=== PATIENT | male | born 1965 | race Caucasian/White ===

== ENCOUNTER → 2021-08-19 08:14 | Outpatient (BNVA) | payer SELFPAY | DX: Z46.89 Encounter for fitting and adjustment of other specified devices (principal) ==

== ENCOUNTER 2023-01-14 10:04 | Emergency (ER) | payer OTHER, SELFPAY ==
--- NOTE | ~2023-01-14 | CT_ITS ---
EXAMINATION: CT ABDOMEN AND PELVIS WITHOUT CONTRAST CLINICAL INFORMATION: Possible kidney stone COMPARISON: None TECHNIQUE: Multidetector volumetric imaging was performed from the superior aspect of the liver through the pubic symphysis. Sagittal and coronal reformatted images were obtained on the technologist's workstation. This CT examination was performed using dose optimization techniques as appropriate, variously including the following: *Automated exposure control *Adjustment of mA and/or kV according to patient size (this includes techniques or standardized protocols for targeted exams where dose is matched to indication/reason for exam; i.e. extremities or head) *Use of iterative reconstruction technique DLP: 670 mGy-cm FINDINGS: LUNG BASES: The visualized lung bases are unremarkable. No pleural or pericardial effusion. LIVER, GALLBLADDER, AND BILIARY TREE: There is fatty infiltration of the liver. No focal mass or intrahepatic bile duct dilatation is appreciated. The liver is prominent measuring approximately 20 cm in vertical span. Cholelithiasis is present without evidence of acute cholecystitis. PANCREAS: Unremarkable. No peripancreatic inflammatory change. SPLEEN: There is splenomegaly with vertical span of 14 cm. ADRENAL GLANDS: Unremarkable. KIDNEYS AND URETERS: Right kidney: There is a 2 mm nonobstructing calculus within the interpolar aspect of the kidney. No hydronephrosis. No focal mass lesion is appreciated. The ureter appears unremarkable. Left kidney: There are 4 nonobstructing calculi seen within the left upper collecting system largest measuring approximately 3 mm in diameter. There is mild left hydronephrosis with perinephric stranding. The ureter is dilated with columnization down to distal ureter measuring approximately 6 mm in diameter. There is periureteral fat stranding. There is a 4 cm upper pole cyst. BLADDER: Unremarkable. GASTROINTESTINAL TRACT: No dilated loops of large or small bowel are seen. No free air or free fluid is present. No pericolonic inflammatory change. The appendix appears unremarkable. ABDOMINAL WALL: No significant hernia is appreciated. LYMPH NODES: No lymphadenopathy appreciated. VASCULAR: Unremarkable. PELVIC VISCERA: Unremarkable. OSSEOUS STRUCTURES: No suspicious destructive bony lesions identified. Degenerative disc disease with facet arthropathy seen L4-S1. CT/CT abdomen pelvis wo IV con IMPRESSION: 6 mm distal left ureteral obstructing calculus with mild hydronephrosis and hydroureter. Bilateral nephrolithiasis. Fatty infiltration of the liver with mild hepatosplenomegaly. Cholelithiasis without evidence of acute cholecystitis. Fleischner guidelines were followed.
[2023-01-14 10:20] VITALS: BP 179/112; PULSE 79; RESP 20; TEMP 36.4; O2SAT 98; BMI 29.9
[2023-01-14 10:38] LABS: MANUAL DIFF FLAG NO
[2023-01-14 10:39] LABS: Basophils Percent Auto 0.6 % (0-2); Eosinophils Absolute Auto 0.2 X10*3/uL (0.0-0.4); Eosinophils Percent Auto 3.5 % (0-4); Hematocrit 48.4 % (42.0-52.0); Hemoglobin 16.7 g/dl (14.0-18.0); Imm Gran Abs Auto 0.01 X10*3/uL (0.00-0.03); Imm Gran Pct Auto 0.2 % (0.0-0.4); Lymphocytes Absolute Auto 1.2 X10*3/uL (1.2-4.9); Lymphocytes Percent Auto 25.8 % (20-40); Mean Corpuscular HGB Conc 34.5 g/dl (31.0-36.0); Mean Corpuscular Hemoglobin 30.9 pg (27.0-33.0); Mean Corpuscular Volume 89.5 fL (80.0-98.0); Mean Platelet Volume 8.5 fL (9.4-12.4); Monocytes Absolute Auto 0.4 X10*3/uL (0.1-1.2); Monocytes Percent Auto 9.3 % (2-11); Neutrophils Absolute Auto 2.8 x10*3/uL (2.0-8.3); Neutrophils Percent Auto 60.6 % (45-73); Platelet Count 205 X10*3/uL (160-400); Red Blood Count 5.41 X10*6/uL (4.60-5.80); Red Cell Distribution Width 12.7 % (11.0-16.0); White Blood Count 4.6 X10*3/uL (4.8-10.8)
[2023-01-14 10:54] LABS: COVID-19 Test Negative (Negative); IDNOW Serial# 16C4AD1C
[2023-01-14 10:57] LABS: Anion Gap 14 (12-20); Blood Urea Nitrogen 16 mg/dL (9-16); Calcium 9.7 mg/dL (8.4-10.2); Carbon Dioxide 23 mmol/L (22-29); Chloride 108 mmol/L (96-108); Creatinine Clr Calc Pharmacy 103.7; Estimated Glomerular Filt Rate > 60; Glucose Random 104 mg/dL (60-115); Potassium 4.2 mmol/L (3.3-5.1); Sodium 141 mmol/L (135-145)
--- NOTE | 2023-01-14 11:02 | ED_ITS ---
HPI - General Adult General Chief complaint: Abdominal Pain Stated complaint: severe abd pain Time Seen by Provider: 01/14/23 11:02 Source: patient Mode of arrival: ambulatory Limitations: no limitations History of Present Illness HPI narrative: 57 [id number] with pmHx of kidney stones, HTN c/o LLQ pain with radiation to Left groin starting yesterday afternoon. He reports he was in the middle of work when it started, was initially a mild pain and he went home to rest. Today awoke with severe pain and difficulty with urination. He reports pain as sharp in nature that is intermittent with a constant aching pain. He reports a prior history of kidney stones 20 years ago that feels similar to this episode. He currently denies nausea/vomiting. He denies heavy lifting or maneuvers that may have provoked the onset of pain, fever, chills, weight loss, Onset (ago): day(s) (1) Location: abdomen Radiation: other (groin) Severity: moderate Quality: stabbing Pain Consistency: constant and intermittent Relieving factors: none Exacerbating factors: none Treatments prior to arrival: none Related Data Previous Rx's Medication Instructions Recorded prednisone 20 mg tablet 20 mg PO DAILY 7 days #7 tabs 01/14/23 tamsulosin 0.4 mg capsule (Flomax) 0.4 mg PO DAILY #7 caps 01/14/23 Allergies Allergy/AdvReac Type Severity Reaction Status Date / Time No Known Allergies Allergy Verified 01/14/23 10:20 Review of Systems Constitutional: Constitutional: Reports no additional constitutional complai nts, Denies chills, Denies fever(s) and Denies night sweats Eyes: Eyes: Reports no additional eye complaints, Denies blurry vision, Denies change in vision, Denies diplopia, Denies eye discharge, Denies loss of vision and Denies eye pain ENT: Denies dizziness Cardiovascular: Cardiovascular: Reports no additional cardiovascular complaints, Denies chest pain, Denies lightheadedness, Denies Loss of Consciousness and Denies dyspnea Respiratory: Respiratory: Reports no additional respiratory complaints and D enies dyspnea Gastrointestinal: Gastrointestinal: Reports no additional gastrointestinal complaints, Reports abdominal pain (LLQ), Denies melena, Denies hematochezia, Denies change in bowel habits and Denies change in stool character Genitourinary: Genitourinary: Reports no additional male genitourinary complaints, Denies hematuria, Denies oliguria, Denies difficulty urinating, Denies dysuria, Denies urinary frequency, Denies urinary hesitancy, Denies urinary incontinence and Denies urinary urgency Musculoskeletal: Musculoskeletal: Reports no additional musculoskeletal complaints, Denies numbness and Denies tingling Neurologic: Denies dizziness, Denies loss of vision, Denies numbness and Denies tingling Psychiatric: Psychiatric: Reports no additional psychiatric complaints Endocrine: Endocrine: Reports no additional endocrine complaints Hematologic/Lymphatic: Hematologic/Lymphatic: Reports no additional hematologic/lymphatic complaints Allergic/Immunologic: Allergic/Immunologic: Reports no additional allergic/immunologic complaints [facility] Past Medical History Attestation statement: The following information was validated with the patient. Source: old records reviewed and nursing notes reviewed Social History Social History Advance Directives: No Physical Exam ED Vital Signs: Vital Signs - 24 hr 01/14/23 15:08 Pulse Rate 89 Respiratory Rate 20 Blood Pressure 151/101 H Pulse Oximetry 97 Oxygen Delivery Method Room Air BMI result Body Mass Index 29.9 Const General: cooperative, no acute distress, alert and awake Nutritional Appearance: well nourished Orientation/consciousness: patient oriented x3 Limitations: no limitations HENMT Head: Yes normal to inspection and Yes atraumatic Ears: hearing grossly normal bilaterally and external ears normal General nose exam: Normal external nose present, no nasal discharge noted and no epistaxis Face and sinus: Yes normal facial exam, No abrasion and No laceration Mouth: Normal oral and palatal mucosa present, no drooling and no muffled voice Eyes General: appearance normal, both eyes and all related structures Periorbital: periorbital findings normal Eyelids: Yes eyelids normal Conjunctivae: conjunctivae normal Pupils: Equal, round and reactive pupils present EOM: EOMs intact bilaterally Neck Neck: Yes normal visual inspection, Yes full ROM and Yes no lymphadenopathy Chest Chest palpation & inspection: normal inspection of the chest Resp Effort & Inspection: normal respiratory effort and able to speak in complete sentences Auscultation: clear to auscultation bilaterally Cardio Palpation: normal PMI Rate: regular rate Rhythm: regular rhythm Heart sounds: S1 normal heart sound present and S2 normal heart sound present GI Inspection: Yes normal to inspection and Yes other (birthmark LLQ) Palpation (GI): Soft to palpation, nontender, no guarding and not rigid Auscultation: normal bowel sounds General: No CVA tenderness and Yes no CVA tenderness Back/Spine/Pelvis Back: no CVA tenderness and No CVA tenderness Skin General skin exam: no rashes or lesions noted Neuro General: patient oriented x3 and moves all extremities Cranial nerves: Yes Equal, round and reactive pupils present Cognition (Neuro): normal cognition Motor exam (neuro): 5/5 motor strength present throughout Sensory Exam: Normal double simultaneous stimulation for sensation Coordination: jsacer-lm-nult test normal Extrem General: Yes normal to inspection, Yes full ROM and Yes capillary refill normal Psych Appearance: grossly normal Mental Status: mental status grossly normal Affect: normal affect Attitude: cooperative Thought process: Normal thought process present Thought content: Normal thought content present Insight: Good insight present (Psych) Medications Administered Discontinued Medications Generic Name Dose Route Start Last Admin Trade Name Freq PRN Reason Stop Dose Admin Hydromorphone HCl 1 mg 01/14/23 14:58 01/14/23 15:09 Hydromorphone Hcl 1 Mg/Ml Syringe IVPUSH 01/14/23 14:59 1 mg ONCE ONE Administration Protocol Sodium Chloride 1,000 mls @ 999 mls/hr 01/14/23 11:30 01/14/23 13:46 Ns IV 01/14/23 12:30 Infused .Q1H1M JANY Infusion Lactated Ringer's 1,000 mls @ 999 mls/hr 01/14/23 15:00 01/14/23 15:10 Lr IV 01/14/23 16:00 999 mls/hr .Q1H1M JANY Administration Ketorolac Tromethamine 15 mg 01/14/23 11:16 01/14/23 11:21 Ketorolac Tromethamine 15 Mg/Ml Vial IVPUSH 01/14/23 11:17 15 mg ONCE ONE Administration Ondansetron HCl 4 mg 01/14/23 11:16 01/14/23 11:21 Ondansetron Hcl 4 Mg/2 Ml Vial IVPUSH 01/14/23 11:17 4 mg ONCE ONE Administration Tamsulosin HCl 0.8 mg 01/14/23 15:00 01/14/23 15:09 Tamsulosin Hcl 0.4 Mg Capsule PO 01/14/23 15:01 0.8 mg ONCE ONE Administration Medical Decision Making Medical Decision Making [facility] Narrative: Patient is a 57 year old assigned male at with a history of kidney stones presenting to the emergency department today with left lower quadrant abdominal pain. Patient's physical exam showed an uncomfortable individual but was otherwise unremarkable. Patient's blood work was unremarkable. Patient's urine showed blood but no signs of acute infection. Patient's abdomen/pelvis CT showed a 6mm distal left ureteral obstructing calculus with mild hydronephrosis and hydroureter. I spoke to the urologist lion trainer who recommended giving the patient a liter of LR, 1mg of dilaudid, and 0.8 of tamsulosin with a strainer and discharge with outpatient follow up. I explained my physical exam findings as well as all test results to the patient and the patient's . I answered all questions asked by the patient and the patient's . I stressed the importance of the patient taking his medication as prescribed. I stressed the importance of the patient following up with his primary care provider and a urologist. I stressed the importance of the patient returning to the emergency department immediately if his symptoms were to worsen or if he were to develop any dizziness, shortness of breath, difficulty breathing, chest pain, blurry vision, loss of vision, nausea, vomiting, abdominal pain, fever, chills, back pain, or any other complaints. Patient and the patient's verbalized agreement and understanding with this treatment plan and discharge. Differential Diagnosis Differential Diagnoses: The differential diagnosis associated with the pre sentation includes kidney stones Consult Healthcare Provider Management of the patient was discussed with: Rn Neonatal (spoke to the urologist lion trainer as noted in the MDM section of this chart) Lab Data [facility] Lab Attestation statement: I reviewed the patient's lab results. 01/14/23 10:29 01/14/23 10:29 Labs: Lab Results 01/14/23 01/14/23 01/14/23 Range/Units 10:29 10:29 10:29 WBC 4.6 L (4.8-10.8) X10*3/uL RBC 5.41 (4.60-5.80) X10*6/uL Hgb 16.7 (14.0-18.0) g/dl Hct 48.4 (42.0-52.0) % MCV 89.5 (80.0-98.0) fL MCH 30.9 (27.0-33.0) pg MCHC 34.5 (31.0-36.0) g/dl RDW 12.7 (11.0-16.0) % Plt Count 205 (160-400) X10*3/uL MPV 8.5 L (9.4-12.4) fL Immature Gran % (Auto) 0.2 (0.0-0.4) % Neut % (Auto) 60.6 (45-73) % Lymph % (Auto) 25.8 (20-40) % Weld % (Auto) 9.3 (2-11) % Eos % (Auto) 3.5 (0-4) % Baso % (Auto) 0.6 (0-2) % Lymph # (Auto) 1.2 (1.2-4.9) X10*3/uL Weld # (Auto) 0.4 (0.1-1.2) X10*3/uL Eos # (Auto) 0.2 (0.0-0.4) X10*3/uL Baso # (Auto) 0.0 (0.0-0.2) X10*3/uL Abs Immat Gran (auto) 0.01 (0.00-0.03) X10*3/uL Absolute Neuts (auto) 2.8 (2.0-8.3) x10*3/uL Absolute Nucleated RBC 0.000 (0.0-0.012) X10*3/uL Nucleated RBC % (auto) 0.0 (0.0-0.2) /100WBC Sodium 141 (135-145) mmol/L Potassium 4.2 (3.3-5.1) mmol/L Chloride 108 (96-108) mmol/L Carbon Dioxide 23 (22-29) mmol/L Anion Gap 14 (12-20) BUN 16 (9-16) mg/dL Creatinine 1.06 (0.5-1.4) mg/dL Estim Creat Clear Calc 103.7 Estimated GFR > 60 Random Glucose 104 (60-115) mg/dL Calcium 9.7 (8.4-10.2) mg/dL Urine Color Urine Appearance Urine pH (5.0-9.0) Ur Specific [place] (1.005-1.025) Urine Protein (Neg-Trace) mg/dL Urine Glucose (UA) (Negative) mg/dL Urine Ketones (Negative) mg/dL Urine Blood (Negative) Urine Nitrite (Negative) Ur Leukocyte Esterase (Negative) Urine RBC (0-2) /HPF Urine WBC (0-5) /HPF Ur Squamous Epith Cells (0-2) /HPF Urine Bacteria (None Seen) Hyaline Casts (0-2) /LPF COVID-19 (ROBERT) Negative (Negative) COVID-19 Clin Com See Note 01/14/23 Range/Units 13:19 WBC (4.8-10.8) X10*3/uL RBC (4.60-5.80) X10*6/uL Hgb (14.0-18.0) g/dl Hct (42.0-52.0) % MCV (80.0-98.0) fL MCH (27.0-33.0) pg MCHC (31.0-36.0) g/dl RDW (11.0-16.0) % Plt Count (160-400) X10*3/uL MPV (9.4-12.4) fL Immature Gran % (Auto) (0.0-0.4) % Neut % (Auto) (45-73) % Lymph % (Auto) (20-40) % Weld % (Auto) (2-11) % Eos % (Auto) (0-4) % Baso % (Auto) (0-2) % Lymph # (Auto) (1.2-4.9) X10*3/uL Weld # (Auto) (0.1-1.2) X10*3/uL Eos # (Auto) (0.0-0.4) X10*3/uL Baso # (Auto) (0.0-0.2) X10*3/uL Abs Immat Gran (auto) (0.00-0.03) X10*3/uL Absolute Neuts (auto) (2.0-8.3) x10*3/uL Absolute Nucleated RBC (0.0-0.012) X10*3/uL Nucleated RBC % (auto) (0.0-0.2) /100WBC Sodium (135-145) mmol/L Potassium (3.3-5.1) mmol/L Chloride (96-108) mmol/L Carbon Dioxide (22-29) mmol/L Anion Gap (12-20) BUN (9-16) mg/dL Creatinine (0.5-1.4) mg/dL Estim Creat Clear Calc Estimated GFR Random Glucose (60-115) mg/dL Calcium (8.4-10.2) mg/dL Urine Color Yellow Urine Appearance Clear Urine pH 6.5 (5.0-9.0) Ur Specific [place] 1.015 (1.005-1.025) Urine Protein Negative (Neg-Trace) mg/dL Urine Glucose (UA) Negative (Negative) mg/dL Urine Ketones Trace (Negative) mg/dL Urine Blood Small (1+) H (Negative) Urine Nitrite Negative (Negative) Ur Leukocyte Esterase Negative (Negative) Urine RBC 11-20 H (0-2) /HPF Urine WBC 0-5 (0-5) /HPF Ur Squamous Epith Cells 0-2 (0-2) /HPF Urine Bacteria None Seen (None Seen) Hyaline Casts 0-2 (0-2) /LPF COVID-19 (ROBERT) (Negative) COVID-19 Clin Com Radiology Impression Radiologist Impression: My interpretation is in agreement with the radiologist's impression of this imaging study. EXAMINATION: CT ABDOMEN AND PELVIS WITHOUT CONTRAST? CLINICAL INFORMATION: Possible kidney stone? COMPARISON: None? TECHNIQUE: Multidetector volumetric imaging was performed from the superior aspect of the liver through the pubic symphysis. Sagittal and coronal reformatted images were obtained on the technologist's workstation.? This CT examination was performed using dose optimization techniques as appropriate, variously including the following: *Automated exposure control *Adjustment of mA and/or kV according to patient size (this includes techniques or standardized protocols for targeted exams where dose is matched to indication/reason for exam; i.e. extremities or head) *Use of iterative reconstruction technique DLP: 670 mGy-cm FINDINGS: LUNG BASES: The visualized lung bases are unremarkable. No pleural or pericardial effusion. LIVER, GALLBLADDER, AND BILIARY TREE: There is fatty infiltration of the liver. No focal mass or intrahepatic bile duct dilatation is appreciated. The liver is prominent measuring approximately 20 cm in vertical span. Cholelithiasis is present without evidence of acute cholecystitis.? PANCREAS: Unremarkable. No peripancreatic inflammatory change. SPLEEN: There is splenomegaly with vertical span of 14 cm. ADRENAL GLANDS: Unremarkable.? KIDNEYS AND URETERS: Right kidney: There is a 2 mm nonobstructing calculus within the interpolar aspect of the kidney. No hydronephrosis. No focal mass lesion is appreciated. The ureter appears unremarkable. Left kidney: There are 4 nonobstructing calculi seen within the left upper collecting system largest measuring approximately 3 mm in diameter. There is mild left hydronephrosis with perinephric stranding. The ureter is dilated with columnization down to distal ureter measuring approximately 6 mm in diameter. There is periureteral fat stranding. There is a 4 cm upper pole cyst. BLADDER: Unremarkable.? GASTROINTESTINAL TRACT: No dilated loops of large or small bowel are seen. No free air or free fluid is present. No pericolonic inflammatory change. The appendix appears unremarkable.? ABDOMINAL WALL: No significant hernia is appreciated.? LYMPH NODES: No lymphadenopathy appreciated. VASCULAR: Unremarkable. PELVIC VISCERA: Unremarkable.? OSSEOUS STRUCTURES: No suspicious destructive bony lesions identified. Degenerative disc disease with facet arthropathy seen L4-S1.? CT/CT abdomen pelvis wo IV con IMPRESSION: 6 mm distal left ureteral obstructing calculus with mild hydronephrosis and hydroureter. ? Bilateral nephrolithiasis. ? Fatty infiltration of the liver with mild hepatosplenomegaly. ? Cholelithiasis without evidence of acute cholecystitis.? ? Fleischner guidelines were followed. Dictated By: Jay Bautista MD Signed By: Electronically signed by Jay Bautista MD 01/14/23 5644 Critical Care Time Critical Care Time Critical Care Time: Yes Total Critical Care Time: 30 Attestation: I spent 30 minutes of Critical Care Time with this patient. This does not include time spent on separately reported billable procedures. Discharge Plan Discharge Clinical Impression: Calculus of kidney Patient Disposition: Home, Self-Care Instructions: Kidney Stones (ED) Additional Instructions: Follow up with your primary care provider and a urologist. Return to the emergency department immediately if your symptoms worsen or if you develop any dizziness, shortness of breath, difficulty breathing, chest pain, blurry vision, loss of vision, nausea, vomiting, abdominal pain, fever, chills, back pain, or any other complaints. Prescriptions: New tamsulosin [Flomax] 0.4 mg capsule 0.4 mg PO DAILY Qty: 7 0RF prednisone 20 mg tablet 20 mg PO DAILY 7 Days Qty: 7 0RF Referrals: [facility] [Provider Group] (Call to establish and follow up with a new primary care provider.) [facility] [place] [facility], Dylan [Provider Group] (Call to establish and follow up with a new primary care provider.) [facility] [place] [facility],Shannan [Provider Group] (Call to establish and follow up with a new primary care provider.) [facility] [Provider Group] (Call to establish and follow up with a urologist.) Jazlyn Art NP [Primary Care Provider] - Stand Alone Forms: Work/School Release Interventions: ED Discharge Assessment Last Done: 01/14/23 16:53 Discharge Date/Time: 01/14/23 16:53 Print Language: Kyrgyz
[2023-01-14] MEDS: Ketorolac Tromethamine 15 MG/ML VIAL IVPUSH (11:21)
[2023-01-14] MEDS: 0.9 % Sodium Chloride 1,000 ML 999 ML IV (11:21)
[2023-01-14] MEDS: ondansetron HCL 4 MG/2 ML VIAL IVPUSH (11:21)
--- NOTE | 2023-01-14 11:29 | PC.NURSE ---
Pacing around room in 10/10 lower abd pain. IV established, medicated per the MAR for pain. Awaiting CT scan, at bedside.
[2023-01-14 13:39] LABS: Appearance Urine Clear; Color Urine Yellow; Glucose Urine UA Negative (Negative); Leukocyte Esterase Urine Negative (Negative); Nitrite Urine Negative (Negative); PH 6.5 (5.0-9.0); Specific Gravity - Urine 1.015 (1.005-1.025); UMIC TRIGGER UACC YES; Urine Blood Small (1+) (Negative); Urine Ketones Trace mg/dL (Negative); Urine Protein Negative (Neg-Trace)
[2023-01-14 13:44] LABS: Bacteria Urine None Seen (None Seen); Hyaline Casts Urine 0-2 /LPF (0-2); Squamous Epithelial Cell Urine 0-2 /HPF (0-2); WBC Urine 0-5 /HPF (0-5)
[2023-01-14 15:08] VITALS: BP 151/101; PULSE 89; RESP 20; O2SAT 97
[2023-01-14] MEDS: HYDROmorphone HCl 1 MG/ML SYRINGE IVPUSH (15:09)
[2023-01-14] MEDS: Tamsulosin HCL 0.4 MG CAPSULE 0.8 MG PO (15:09)
[2023-01-14] MEDS: Lactated Ringers 1,000 ML 999 ML IV (15:10)
== END 2023-01-14 16:53 | disposition home or self-care (01) ==
PROVIDERS: Emergency Provider Emergency Medicine; PCP Nurse Practitioner Family
DX: N13.2 Hydronephrosis with renal and ureteral calculous obstruction (principal); I10 Essential (primary) hypertension; Z87.442 Personal history of urinary calculi; Z20.822 Contact with and (suspected) exposure to COVID-19
CPT/HCPCS: 74176; 80048; 81001; 85025; 87635; 96361; 96374; 96375; 99285; J1170; J1885; J2405

== ENCOUNTER → 2023-01-29 14:15 | Outpatient (BNVA) | payer OTHER, SELFPAY | PROVIDERS: PCP Nurse Practitioner Family; Visit Provider Urology | DX: Z13.89 Encounter for screening for other disorder (principal) ==

== ENCOUNTER 2023-03-24 08:27 | Outpatient (REF) | payer OTHER, SELFPAY ==
[2023-03-24 10:02] LABS: Alanine Aminotransferase 20 U/L (0-40); Albumin Level 4.6 g/dL (3.5-5.0); Alkaline Phosphatase 77 U/L (39-117); Anion Gap 11 (12-20); Aspartate Amino Transferase 17 U/L (5-37); Blood Urea Nitrogen 15 mg/dL (9-16); Calcium 9.8 mg/dL (8.4-10.2); Carbon Dioxide 25 mmol/L (22-29); Chloride 106 mmol/L (96-108); Cholesterol 203 mg/dL; Estimated Glomerular Filt Rate > 60; Glucose Fasting 89 mg/dL (60-99); HDL Cholesterol 30 mg/dL; LDL Cholesterol Calculated 152 mg/dl; Potassium 4.4 mmol/L (3.3-5.1); Sodium 138 mmol/L (135-145); Total Protein 6.9 g/dL (6.5-8.0); Triglycerides 108 mg/dL
[2023-03-24 10:32] LABS: Folate 8.7 ng/mL (> or = 4.0); Prostate Specific Antigen 10.93 ng/mL (<0.05-4.0); TSH reflex Free T4 1.65 uIU/mL (0.32-4.0); Vitamin B12 517 pg/mL (200-900); Vitamin D 25-OH Total 22.8 ng/mL (>30)
== END 2023-03-24 08:28 | disposition home or self-care (01) ==
LOC: HO.LAB 08:27
PROVIDERS: PCP Nurse Practitioner Family; Visit Provider Nurse Practitioner Family
DX: I10 Essential (primary) hypertension (principal); Z13.1 Encounter for screening for diabetes mellitus; Z13.220 Encounter for screening for lipoid disorders; Z12.5 Encounter for screening for malignant neoplasm of prostate; E55.9 Vitamin D deficiency, unspecified; N40.0 Benign prostatic hyperplasia without lower urinary tract symptoms; R97.20 Elevated prostate specific antigen [PSA]
CPT/HCPCS: 36415; 80053; 80061; 82306; 82607; 82746; 84153; 84443

== ENCOUNTER → 2023-03-29 13:27 | Outpatient (BNVA) | payer OTHER, SELFPAY | PROVIDERS: PCP Nurse Practitioner Family; Visit Provider Urology ==

== ENCOUNTER → 2023-04-06 11:51 | Outpatient (BNVA) | payer OTHER, SELFPAY | PROVIDERS: PCP Nurse Practitioner Family; Visit Provider Nurse Practitioner Family ==

== ENCOUNTER 2024-01-06 06:51 | Day surgery (SDC) | payer OTHER, SELFPAY ==
[2024-01-04 10:50] VITALS: BMI 30.7
--- NOTE | 2024-01-05 11:41 | HO.ANESPROP2 ---
Documented by User: Mirna Anderson NP 01/05/24 11:42 HPI - Anesthesia Eval Consult details Narrative: 58yo M for Colonoscopy PMFSH Active Problems Active Problems: All Active Problems (Updated 01/04/24 @ 10:49 by Carmen Sharif, JONE) Low vitamin D level (Acute) BPH (benign prostatic hyperplasia) (Acute) Elevated PSA (Acute) Upper respiratory tract infection (Acute) Obesity (BMI 30.0-34.9) (Acute) Establishing care with new doctor, encounter for (Acute) Fatty infiltration of liver (Acute) Screening for colon cancer (Acute) Screening for diabetes mellitus (Acute) Screening for hyperlipidemia (Acute) Screening for prostate cancer (Acute) Hypertension (Acute) Bilateral kidney stones (Acute) Past Medical History Medical History (Updated 01/04/24 @ 10:49 by Carmen Sharif RN) Sleep apnea Fatty liver Renal calculi BPH (benign prostatic hyperplasia) HTN (hypertension) Family History Family History Father Colon cancer Surgical History Surgical History H/O umbilical hernia repair Social History Social History Housing: House Patient Tobacco Use Status: Never used Tobacco Are you DNR?: No Advance Directives: No Advance Directives Information Provided: Yes Nutrition Risks: No Nutritional Risk service: No Current occupational status: employed Cognitive needs: No Hearing needs: No Vision needs: No Meds Allergies Allergy/AdvReac Type Severity Reaction Status Date / Time No Known Allergies Allergy Verified 04/06/23 12:19 Home Medications Medication Instructions Recorded Confirmed Last Taken Type amlodipine 5 mg tablet 5 mg PO DAILY 01/29/23 01/04/24 Unknown History fluticasone propionate 50 1 spray intranasal DAILY PRN Nasal 02/11/23 01/04/24 Unknown History mcg/actuation nasal Congestion spray,suspension Exam Height,Weight and Vital Signs: Height 6 ft 3 in Weight 111.584 kg Assessment and Plan Assessment Anesthesia Assessment: Chart Reviewed Documented by User: Hiro Gutierrez MD 01/06/24 07:49 PMF Past Medical History Medical History (Updated 01/04/24 @ 10:49 by Carmen Sharif RN) Sleep apnea Fatty liver Renal calculi BPH (benign prostatic hyperplasia) HTN (hypertension) Family History Family History Father Colon cancer Family history of problems with anesthesia: No Surgical History Surgical History H/O umbilical hernia repair History of Problems with Anesthesia: No Social History Social History Housing: House Patient Tobacco Use Status: Never used Tobacco Are you DNR?: No Advance Directives: No Advance Directives Information Provided: Yes Nutrition Risks: No Nutritional Risk service: No Current occupational status: employed Cognitive needs: No Hearing needs: No Vision needs: No Meds Allergies Allergy/AdvReac Type Severity Reaction Status Date / Time No Known Allergies Allergy Verified 04/06/23 12:19 Home Medications Medication Instructions Recorded Confirmed Last Taken Type amlodipine 5 mg tablet 5 mg PO DAILY 01/29/23 01/04/24 Unknown History fluticasone propionate 50 1 spray intranasal DAILY PRN Nasal 02/11/23 01/04/24 Unknown History mcg/actuation nasal Congestion spray,suspension Exam Airway Mallampati Class: II TM Dist: >3cm Neck ROM: Full Loose/Missing/Broken Teeth: No Heart: ok Lungs: ok Assessment and Plan Assessment Anesthesia Assessment: Anesthesia Plan Discussed Final Anesthetic Review Family History of Problems with Anesthesia: No History of Problems with Anesthesia: No NPO: Yes ASA Class: III Final Preanesthetic Review: No Changes in Pt Med Stat, Meds/Allgs Chart Reviewed, Consent Obtained/Reviewed and Anes Risks/Benef Reviewed Patient Risk: Low Procedure Risk: Low Anesthetic Plan Anesthetic Plan: MAC: and Agree w/ Assess. and Plan Disposition: Standard PACU
[2024-01-06 07:03] VITALS: BMI 31.7
[2024-01-06 07:19] VITALS: BP 181/111; PULSE 70; RESP 20; TEMP 36.9; O2SAT 96
[2024-01-06] MEDS: Lactated Ringers 1,000 ML 100 ML IVCONT (07:24)
--- NOTE | 2024-01-06 07:41 | MHC.SHP ---
Pre-Procedural Eval Section A - 24 Hr Update-Section A only Date of Service: 01/06/24 Section B - Complete if H&P > 30 days Chief Complaint: screening Details of Present Illness: father had crc Relevant Family History (Specify if Yes): Yes Relevant Social History: Other (specify) (THC) Present Medications: see Short Stay Collaborative assessment Medical History: Significant History (Sleep apnea Fatty liver Renal calculi BPH (benign prostatic hyperplasia) HTN (hypertension)) History of Previous Operations: Relevant previous surgery/procedure and date(s) (H/O umbilical hernia repair) Allergies: Allergies Allergy/AdvReac Type Severity Reaction Status Date / Time No Known Allergies Allergy Verified 04/06/23 12:19 Review of Systems Sugical H&P ROS: Negative: Constitution, Cardiovascular, Respiratory, Neurological, Psychiatric, Hem-Onc, Allergic/Immunologic, Gastrointestinal, Genitourinary, Musculoskeletal, Integumentary, Endocrine and Eyes/Ears/Nose/Throat Exam Surgical H&P Exam: Normal: HEENT, Normal: Heart, Normal: Lungs, Normal: Extremities, Normal: Abdomen, Normal: Skin and Normal: Neurological Plan Diagnosis/Plan: Unchanged I have reviewed the history and physical and performed a pertinent physical examination on my patient. No changes have occurred unless specified. Time Spent With Patient Time: Total time managing care of this patient today ____ minutes.
--- NOTE | 2024-01-06 07:42 | W.PM.OPN ---
Operative Note Operative Note Date of Service: 01/06/24 Narrative: Operative Information Procedure Description: Colonoscopy Indication: screening, pos FH of CRC Anesthesia: MAC COLONOSCOPY Instrument: Olympus variable stiffness pediatric scope 190L Colonoscopy Monitoring: Vital signs and clinical assessment, continuous EKG monitoring, Pulse oximetry, Carbon Dioxide monitoring and blood pressure monitoring were done throughout the procedure. Colon withdrawal time was 15 minutes. Procedure: The patient was placed in the left lateral decubitis position and pre-procedure medications were administered. After a digital rectal examination of the ano-rectum, the video colonoscope was inserted into the rectum and advanced through the colon to the cecum/TI. The colonoscope was slowly withdrawn in a retrograde panoramic fashion and the colon mucosa was carefully examined including a retroflexed view of the rectum. Findings and interventions are described below. Procedure Difficulty: moderate, pressure applied Findings: Terminal Ileum-not intubated due to looping Cecum:normal Ascending Colon: x 3 sessile polyps 4-5 mm removed with cold forceps Transverse Colon -normal Descending Colon:normal Sigmoid Colon: moderate diverticulosis, x 2 sessile polyps 8-9 mm removed with cold snare, one area with x 2 clips applied due to oozing of blood Rectum: Retroflexion with medium to large internal hemorrhoids, grade I Anorectum - normal Colon preparation: [place] Bowel Preparation Scale Right colon; 1-2 Transverse colon: 2 Left colon; 1-2 (0 = Unprepared colon segment with mucosa not seen due to solid stool that cannot be cleared. 1 = Portion of mucosa of the colon segment seen, but other areas of the colon segment not well seen due to staining, residual stool and/or opaque liquid. 2 = Minor amount of residual staining, small fragments of stool and/or opaque liquid, but mucosa of colon segment seen well. 3 = Entire mucosa of colon segment seen well with no residual staining, small fragments of stool or opaque liquid) Impression and Post Procedure Diagnosis: polyps internal hemorrhoids diverticular disease Plan: High fiber diet leaflet Avoid straining at stool, epsom salts and sitz bath, anusol supps or cream Repeat Colonoscopy in 1 year due to fair prep or earlier if clinically indicated Above findings were reviewed with the patient and relevant handouts were provided if indicated.
[2024-01-06 08:15] VITALS: BP 149/97; PULSE 95; RESP 16; TEMP 36.3; O2SAT 97
[2024-01-06 08:30] VITALS: BP 150/111; PULSE 83; RESP 16; TEMP 36.3; O2SAT 96
== END 2024-01-06 08:54 | disposition home or self-care (01) ==
PROVIDERS: PCP Internal Medicine; Visit Provider Internal Medicine Gastroenterology
PROC: 0DJD8ZZ Inspection of Lower Intestinal Tract, Via Natural or Artificial Opening Endoscopic (ICD-10-PCS; CPT 45378; principal; 2024-01-06 08:20)
DX: Z12.11 Encounter for screening for malignant neoplasm of colon (principal); D12.2 Benign neoplasm of ascending colon; D12.5 Benign neoplasm of sigmoid colon; K57.30 Diverticulosis of large intestine without perforation or abscess without bleeding; K56.2 Volvulus; K64.0 First degree hemorrhoids; I10 Essential (primary) hypertension; Z80.0 Family history of malignant neoplasm of digestive organs
CPT/HCPCS: 45385; 45380; 88305; J2704

== ENCOUNTER → 2024-01-06 06:51 | Outpatient (BNV) | payer OTHER, SELFPAY | PROVIDERS: PCP Internal Medicine; Visit Provider Internal Medicine Gastroenterology | DX: Z12.11 Encounter for screening for malignant neoplasm of colon (principal); Z80.0 Family history of malignant neoplasm of digestive organs; D12.2 Benign neoplasm of ascending colon; D12.5 Benign neoplasm of sigmoid colon; K57.30 Diverticulosis of large intestine without perforation or abscess without bleeding; K64.0 First degree hemorrhoids | CPT/HCPCS: 45380; 45385 ==

== ENCOUNTER 2024-01-21 11:33 | Outpatient (AMB) | payer OTHER, SELFPAY ==
--- NOTE | 2024-01-21 11:38 | MHC.OFFVIS ---
Intake Vital Signs 01/21/24 11:39 Height 6 ft 3 in Weight 250 lb BMI 31.2 BP 151/88 H Blood Pressure Location Lt brachial Position Sitting Pulse 75 Intake Visit Reasons: s/p colon Intake Note: Follow up for Colonoscopy results. Patient denies any GI issues for today. 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 Denies any issues with anesthesia in the past.? Diagnosed with sleep apnea several years ago, however since he lost 60 lb he no longer uses CPAP machine.? No history infectious diseases in the past or present.? Not on any anticoagulation therapy.? Patient's father was diagnosed with colorectal cancer in 2007.? Patient denies melena, hematochezia, unintentional weight loss or ribbon like stools.? Discussed at length the pre-procedure,? prep, diet & medications as well as what to expect prior, during and after the procedure.?? Stressed the importance of good bowel prep. ?Recommended the use of Vaseline or Calmoseptine OTC & baby wipes with bowel movements to promote comfort.? ?Patient verbalizes understanding and agrees to plan of care.? He was given the opportunity to ask questions and all questions answered.? We will see him after the procedure.? COLONOSCOPY Findings: Terminal Ileum-not intubated due to looping Cecum:normal Ascending Colon: x 3 sessile polyps 4-5 mm removed with cold forceps Transverse Colon -normal Descending Colon:normal Sigmoid Colon: moderate diverticulosis, x 2 sessile polyps 8-9 mm removed with cold snare, one area with x 2 clips applied due to oozing of blood Rectum: Retroflexion with medium to large internal hemorrhoids, grade I Anorectum - normal Colon preparation: [place] Bowel Preparation Scale Right colon; 1-2 Transverse colon: 2 Left colon; 1-2 (0 = Unprepared colon segment with mucosa not seen due to solid stool that cannot be cleared. 1 = Portion of mucosa of the colon segment seen, but other areas of the colon segment not well seen due to staining, residual stool and/or opaque liquid. 2 = Minor amount of residual staining, small fragments of stool and/or opaque liquid, but mucosa of colon segment seen well. 3 = Entire mucosa of colon segment seen well with no residual staining, small fragments of stool or opaque liquid) Impression and Post Procedure Diagnosis: polyps internal hemorrhoids diverticular disease Plan: High fiber diet leaflet Avoid straining at stool, epsom salts and sitz bath, anusol supps or cream Repeat Colonoscopy in 1 year due to fair prep or earlier if clinically indicated PATHOLOGY RESULTS Diagnosis A. Colon, ascending, polyps: Tubular adenoma, 1 piece; negative for high-grade dysplasia and carcinoma, and polypoid colonic mucosa, 1 piece, with no adenomatous dysplasia. B. Colon, sigmoid, polyps: Tubular adenoma, 1 piece; negative for high-grade dysplasia and carcinoma, and polypoid colonic mucosa, 1 piece, with lymphoid aggregate and no adenomatous dysplasia TODAY'S VISIT Patient is here today for follow-up and to discuss colonoscopy results. Two tubular adenoma found without high-grade dysplasia or carcinoma. Moderate diverticulosis seen on colonoscopy in sigmoid colon. Patient denies any ill effects from the prep, anesthesia or procedure itself. Patient had suboptimal prep and will need to repeat colonoscopy in 1 year. Patient denies any melena, hematochezia, unintentional weight loss or ribbon like stools. Reports that he is feeling like he moves his bowels daily. Patient denies any GI concerning symptoms. Denies any dyspepsia, dysphagia or odynophagia. Denies any abdominal pain or discomfort. [facility] Medical History (Updated 01/21/24 @ 19:40 by DELFINO Xiong) Diverticulosis Tubular adenoma of colon Sleep apnea Fatty liver Renal calculi BPH (benign prostatic hyperplasia) HTN (hypertension) Surgical History Hx of colonoscopy H/O umbilical hernia repair Family History Father Colon cancer Social History Housing: House Patient Tobacco Use Status: Never used Tobacco service: No Current occupational status: employed Cognitive needs: No Hearing needs: No Vision needs: No Review of Systems Const Denies weight gain and Denies weight loss ENT Reports no additional complaints, Denies dysphagia and Denies odynophagia Card Reports no additional complaints Resp Reports no additional complaints GI Denies abdominal pain, Denies belching, Denies melena, Denies bloating, Denies change in bowel habits, Denies dysphagia, Denies excessive flatus, Denies dyspepsia, Denies heartburn, Denies diarrhea, Denies loose stools, Denies nausea, Denies odynophagia and Denies vomiting Reports no additional complaints Musc Reports no additional complaints Neuro Reports no additional complaints Psych Reports no additional complaints Endo Reports no additional complaints Physical Exam Vital Signs: Last Vital Signs Pulse 75 01/21/24 11:39 BP 151/88 H 01/21/24 11:39 BMI result Body Mass Index 31.2 Const General: healthy appearing, no acute distress and well developed Nutritional Appearance: well nourished Orientation/consciousness: patient oriented x3 Resp Effort & Inspection: normal respiratory effort, able to speak in complete sentences, no tracheal deviation and symmetric chest movement Auscultation: clear to auscultation bilaterally Cardio Rate: regular rate GI Inspection: Yes normal to inspection and No distended Palpation (GI): Soft to palpation, not firm, nontender and No hepatosplenomegaly present Auscultation: normal bowel sounds General: Yes no CVA tenderness Back/Spine/Pelvis Back: no CVA tenderness Skin General skin exam: elasticity normal, turgor normal and dry skin Neuro General: patient oriented x3 Psych Appearance: grossly normal Mental Status: mental status grossly normal Assessment & Plan Assessment & Plan (1) Tubular adenoma of colon: Code(s): D12.6 - Benign neoplasm of colon, unspecified (2) Diverticulosis: Code(s): K57.90 - Diverticulosis of intestine, part unspecified, without perforation or abscess without bleeding (3) Status post colonoscopy: Code(s): Z98.890 - Other specified postprocedural states Plan Patient is inquiring about getting script for amlodipine as he is out and does not have a PCP appointment for another month or so. Patient's PCP left. Will refill 1 month supply. Patient was encouraged to start taking MiraLax daily to help him empty his bowels better. As mentioned above in HPI tubular adenoma found without high-grade dysplasia or carcinoma. Suboptimal prep might have missed some polyps, patient will return in 8 months we can discuss going for colonoscopy within 1 year. Patient will call us sooner if he will have any GI concerning symptoms or if he will experience any clinical signs requiring colonoscopy sooner. Moderate diverticulosis in sigmoid colon. Patient was encouraged to increase fiber in his diet. High-fiber diet discussed with him and list of food high in fiber given to patient. Patient is agreeable to current plan and verbalizes understanding of instructions. He was given the opportunity to ask questions and all questions answered. Thank you for allowing me to participate in his care Medications: New amlodipine 5 mg PO DAILY 30 tabs 0RF polyethylene glycol 3350 (Miralax) 17 grams PO DAILY 510 grams 2RF Coding Level of Care Code Est Pt Level 3 (23617) Diagnoses Tubular adenoma of colon D12.6 Diverticulosis K57.90 Status post colonoscopy Z98.890 Time Spent (min) 25 Comment 15 minutes spent with patient and additional 10 minutes spent reviewing his records
[2024-01-21 11:39] VITALS: BP 151/88; PULSE 75; BMI 31.2
== END 2024-01-21 12:06 | disposition home or self-care (01) ==
PROVIDERS: PCP Internal Medicine; Visit Provider Nurse Practitioner Family
DX: D12.6 Benign neoplasm of colon, unspecified (principal); K57.90 Diverticulosis of intestine, part unspecified, without perforation or abscess without bleeding; Z98.890 Other specified postprocedural states
CPT/HCPCS: 99213

== ENCOUNTER → 2024-01-21 11:33 | Outpatient (BNVA) | payer OTHER, SELFPAY | PROVIDERS: PCP Internal Medicine; Visit Provider Nurse Practitioner Family ==

== ENCOUNTER 2024-04-20 14:11 | Outpatient (AMB) | payer OTHER, SELFPAY ==
--- NOTE | 2024-04-20 14:18 | A.OFFPC_ITS ---
Vital Signs 04/20/24 14:21 Height 6 ft 3 in Weight 249 lb 4 oz BMI 31.2 BP 132/70 Blood Pressure Location Lt brachial Position Sitting Pulse 80 Pulse Source Pulse Oximeter Pulse Oximetry (%) 99 Oxygen Delivery Method Room Air Intake Visit Reasons: was sebastian pt, tennis elbow Intake Note: Patient is here to follow up on tennis elbow and RUBI from 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 Patient reports that the tendinitis in the right elbow is improving. He did physical therapy and symptoms are resolving. Compliant with medications and reporting no side effects. Able to function and do all activities of daily living. Previous blood work was reviewed with patient. He is PSA was elevated at 10.93. Patient reports that he was notified of the same but did not follow-up. He has no urinary symptoms. [facility] Medical History (Updated 01/21/24 @ 19:40 by Anastasiia Matson, [facility]) Diverticulosis Tubular adenoma of colon Sleep apnea Fatty liver Renal calculi BPH (benign prostatic hyperplasia) HTN (hypertension) Surgical History (Updated 04/20/24 @ 14:27 by KIARA Jules) Hx of colonoscopy H/O umbilical hernia repair Family History Father Colon cancer Social History (Updated 04/20/24 @ 14:27 by KIARA Jules) Housing: House Alcohol intake: current Alcohol intake frequency: a few times a month Patient Tobacco Use Status: Current someday Tobacco user Tobacco use type: Cigar e-Cigarette/Vaping Use: Never Used Second Hand Smoke Exposure: No service: No Current occupational status: employed Cognitive needs: No Hearing needs: No Vision needs: No Questionnaire PHQ-9 Over the last 2 weeks, how often have you been bothered by any of the following problems? 1. Little interest or pleasure in doing things: not at all 2. Feeling down, depressed, or hopeless: not at all 3. Trouble falling or staying asleep, or sleeping too much: not at all 4. Feeling tired or having little energy: not at all 5. Poor appetite or overeating: not at all 6. Feeling bad about yourself - or that you are a failure or have let yourself or your family down: not at all 7. Trouble concentrating on things, such as reading the newspaper or watching television: not at all 8. Moving or speaking so slowly that other people could have noticed. Or the opposite - being so fidgety or restless that you have been moving around a lot more than usual: not at all 9. Thoughts that you would be better off or of hurting yourself in some way: not at all Total score: 0 Depression Screening Interpretation: Negative Depression Screening Done: Yes Source: Developed by Drs. Wally Jo, Amy Marrero, Juan Jose Pond and colleagues, with an educational ce from [employer]. Thrive Questionnaire Date Thrive assessed: 04/20/24 I am a: Patient What is your living situation today?: I have a steady place to live Within the past 12 months, did the food you bought not last and you didn't have the money to get more?: Never true Within the past 12 months, did you worry whether your food would run out before you got money to buy more?: Never true Do you have trouble paying for medicines?: No Do you have trouble getting transportation to medical appointments?: No Do you have trouble paying your heating and electricity bill?: No Do you have trouble taking care of your child, family member or friend?: No Do you have trouble with day-to-day activities such as bathing, preparing meals, shopping, managing finances, etc.?: No Are you currently unemployed and looking for a job?: No Are you interested in more education?: No Currently or been in a relationship where the following occur: no concerns reported THRIVE Score: 0 AUDIT C Alcohol Use Questionnaire (AUDIT-C) 1. How often do you have a drink containing alcohol?: 2-4 times a month 2. How many drinks containing alcohol do you have on a typical day when you are drinking?: 1 or 2 Total Score: 2 MELL-7 AMB Questionnaire MELL-7 Date MELL - 7 assessed: 04/20/24 Feeling nervous, anxious, or on edge: 0 = Not at all Not being able to stop or control worryin = Not at all Worrying too much about different things: 0 = Not at all Trouble relaxin = Not at all Being so restless that it is hard to sit still: 0 = Not at all Becoming easily annoyed or irritable: 0 = Not at all Feeling afraid as if something awful might happen: 0 = Not at all Total MELL-7 score (0-4 normal; 5-9 mild; 10-14 moderate; 15-21 severe): 0 Source: Developed by Drs. Wally Jo, Amy Marrero, Juan Jose Pond and colleagues, with an educational ce from [employer]. Physical exam (Primary Care) Vital Signs: Last Vital Signs Pulse 80 04/20/24 14:21 BP 132/70 04/20/24 14:21 Pulse Ox 99 04/20/24 14:21 Oxygen Delivery Method Room Air 04/20/24 14:21 BMI result Body Mass Index 31.2 Tobacco/Smoking Status: Tobacco use Status Tobacco use date assessed 04/20/24 04/20/24 14:28 Patient Tobacco Use Status Current someday Tobacco 04/20/24 14:28 Tobacco use type Cigar 04/20/24 14:28 e-Cigarette/Vaping Use Never Used 04/20/24 14:28 PHQ-9: PHQ-9 Score PHQ-9: Total score 0 04/20/24 14:28 Depression Screening Interpretation: Negative Thrive Assessment: Date of Thrive Assessment Date Thrive assessed 04/20/24 04/20/24 14:28 Currently or been in a relationship where the following occur: no concerns reported Const General: cooperative and healthy appearing Nutritional Appearance: well nourished Orientation/consciousness: patient oriented x3 Limitations: no limitations HENMT Head: Yes normal to inspection Eyes General: appearance normal, both eyes and all related structures Neck Neck: Yes normal visual inspection Chest Chest palpation & inspection: normal palpation of entire chest wall Resp Effort & Inspection: normal respiratory effort Neuro General: patient oriented x3 Assessment and Plan Assessment & Plan (1) Obesity (BMI 30.0-34.9): Code(s): E66.9 - Obesity, unspecified Plan: Counseling on the importance of diet and exercise done. (2) Hypertension: Code(s): I10 - Essential (primary) hypertension Plan: Blood pressure is in range. Amlodipine has been refilled. (3) Prostate hypertrophy: Code(s): N40.0 - Benign prostatic hyperplasia without lower urinary tract symptoms Plan: PSA has been repeated. I encouraged the patient not to ignore the elevated PSA. Currently he has no urinary symptoms. Orders: Orders Basic Metabolic Panel Today E66.9 - Obesity, unspecified, I10 - Essential (primary) hypertension Thyroid Stimulating Hormone Today E66.9 - Obesity, unspecified, I10 - Essential (primary) hypertension Complete Blood Count no Diff Today E66.9 - Obesity, unspecified, I10 - Essential (primary) hypertension Liver Panel Today E66.9 - Obesity, unspecified, I10 - Essential (primary) hypertension Lipid Panel Today E66.9 - Obesity, unspecified, I10 - Essential (primary) hypertension Prostate Specific Antigen Scr Today E66.9 - Obesity, unspecified, I10 - Essential (primary) hypertension Medications: Refilled cholecalciferol (vitamin D3) 25 mcg PO DAILY 90 tabs 0RF R79.89 - Other specified abnormal findings of blood chemistry amlodipine 5 mg PO DAILY 90 tabs 1RF Coding Level of Care Code Est Pt Level 4 (41221) Complex EM visit Add On G2211 Diagnoses Obesity (BMI 30.0-34.9) E66.9 Hypertension I10 Prostate hypertrophy N40.0
[2024-04-20 14:21] VITALS: BP 132/70; PULSE 80; O2SAT 99; BMI 31.2
== END 2024-04-20 15:09 | disposition home or self-care (01) ==
PROVIDERS: PCP Internal Medicine; Visit Provider Internal Medicine
DX: I10 Essential (primary) hypertension (principal); N40.0 Benign prostatic hyperplasia without lower urinary tract symptoms; E66.9 Obesity, unspecified; Z68.31 Body mass index [BMI] 31.0-31.9, adult
CPT/HCPCS: 99214; G2211

== ENCOUNTER 2024-07-10 10:11 | Outpatient (AMB) | payer OTHER, SELFPAY ==
[2024-07-10 11:19] VITALS: BP 138/94; PULSE 76; TEMP 36.9; O2SAT 98; BMI 30.1
--- NOTE | 2024-07-10 11:19 | MHC.OFFWIV ---
Intake Vital Signs 07/10/24 11:19 Height 6 ft 3 in Weight 241 lb BMI 30.1 BP 138/94 H Blood Pressure Location Rt brachial Position Sitting Pulse 76 Pulse Source Pulse Oximeter Temp 98.4 F Temp Source Oral Pulse Oximetry (%) 98 Oxygen Delivery Method Room Air Intake Visit Reasons: EP- sinus congestion, headaches Intake Note: pt c/o Sinus congestion and headache x 3 weeks. Patient Tobacco Use Status: Current someday Tobacco user Allergies No Known Allergies Allergy (Verified 07/10/24 11:23) Do you need a note to return to daycare/school/sports/work: No HPI HPI Comments History of Present Illness Details Patient is a 58-year-old male complaining of what he thinks is a sinus infection for over 2 weeks. He states he has sinus pain and pressure had a headache but that seems a little bit better now. He also admits to head congestion. He states he has been using Flonase and a Neti pot with distilled water regularly but it does not seem to be getting much better. He said usually by now, it clears up. He states he also has fatigue. He denies any body aches or fevers or ear pain [facility] Medical History (Updated 07/10/24 @ 11:50 by Kaity Hurst PA-C) Diverticulosis Tubular adenoma of colon Sleep apnea Fatty liver Renal calculi BPH (benign prostatic hyperplasia) HTN (hypertension) Surgical History (Updated 04/20/24 @ 14:27 by KIARA Jules) Hx of colonoscopy H/O umbilical hernia repair Family History Father Colon cancer Social History (Updated 04/20/24 @ 14:27 by KIARA Jules) Housing: House Alcohol intake: current Alcohol intake frequency: a few times a month Patient Tobacco Use Status: Current someday Tobacco user Tobacco use type: Cigar e-Cigarette/Vaping Use: Never Used Second Hand Smoke Exposure: No service: No Current occupational status: employed Cognitive needs: No Hearing needs: No Vision needs: No Review of Systems Const All systems reviewed & are unremarkable except as noted in HPI and below Physical Exam Vital Signs: Last Vital Signs Temp 98.4 F 07/10/24 11:19 Pulse 76 07/10/24 11:19 BP 138/94 H 07/10/24 11:19 Pulse Ox 98 07/10/24 11:19 Oxygen Delivery Method Room Air 07/10/24 11:19 BMI result Body Mass Index 30.1 Const General: cooperative, healthy appearing, comfortable and no acute distress Orientation/consciousness: patient oriented x3 Limitations: no limitations HEENT Head: Yes normal to inspection Ears: hearing grossly normal bilaterally and external ears normal General nose exam: Normal external nose present, Normal nares present and No nasal discharge present Face and sinus: Yes normal facial exam and Yes sinus tenderness Mouth: Normal oral and palatal mucosa present and moist mucous membranes Throat: Yes tonsils normal, Yes uvula midline and Yes posterior oropharynx abnormal (Erythema) Eyes General: appearance normal, both eyes and all related structures Neck Neck: Yes normal visual inspection Resp Effort & Inspection: normal respiratory effort, able to speak in complete sentences, no respiratory distress, not tachypneic, no tripod positioning and no use of accessory muscles Skin General skin exam: no rashes or lesions noted Neuro General: patient oriented x3 Extrem General: Yes normal to inspection and Yes no clubbing, cyanosis or edema Assessment & Plan Assessment & Plan (1) Sinusitis: Code(s): J32.9 - Chronic sinusitis, unspecified Qualifiers: Sinusitis location: ethmoidal Chronicity: acute Recurrence: non-recurrent Qualified Code(s): J01.20 - Acute ethmoidal sinusitis, unspecified Plan: As it has been almost 2 weeks, and patient is treating himself with all appropriate sinusitis medications, this is most likely bacterial. I sent an antibiotic to his pharmacy. Plan See above Medications: New amoxicillin-pot clavulanate 875-125 mg 1 tab PO Q12H 10 tabs 0RF Coding Level of Care Code Est Pt Level 3 (51557) Diagnoses Acute non-recurrent ethmoidal sinusitis J01.20 Sinusitis location: ethmoidal Chronicity: acute Recurrence: non-recurrent
== END 2024-07-10 11:46 | disposition home or self-care (01) ==
PROVIDERS: PCP Internal Medicine; Visit Provider Physician Assistant
DX: J01.20 Acute ethmoidal sinusitis, unspecified (principal)
CPT/HCPCS: 99213

== ENCOUNTER 2024-09-04 08:16 | Outpatient (AMB) | payer OTHER, SELFPAY ==
[2024-09-04 08:20] VITALS: BP 140/90; PULSE 82; TEMP 36.9; O2SAT 98
--- NOTE | 2024-09-04 08:20 | AM.OFFWIN_ITS ---
Intake Vital Signs 09/04/24 08:20 Weight 247 lb BP 140/90 H Blood Pressure Location Lt brachial Position Sitting Pulse 82 Pulse Source Pulse Oximeter Temp 98.5 F Temp Source Oral Pulse Oximetry (%) 98 Oxygen Delivery Method Room Air Intake Visit Reasons: EP-sinus infection Intake Note: Patient here for fatigue, head congestion and headache that has been present for a couple of weeks. Patient Tobacco Use Status: Former Tobacco user Allergies No Known Allergies Allergy (Verified 09/04/24 08:26) Do you need a note to return to daycare/school/sports/work: No HPI HPI Comments History of Present Illness Details Patient is a 58-year-old male complaining of about a month of head congestion, fatigue and sinus pain. He has been using a Neti pot with distilled water and Flonase. He states he usually gets 1 in the spring and 1 in the fall and they usually go away on their own but this one has been pretty persistent. [facility] Medical History (Updated 09/04/24 @ 08:41 by Kaity Hurst PA-C) Diverticulosis Tubular adenoma of colon Sleep apnea Fatty liver Renal calculi BPH (benign prostatic hyperplasia) HTN (hypertension) Surgical History (Updated 04/20/24 @ 14:27 by KIARA Jules) Hx of colonoscopy H/O umbilical hernia repair Family History Father Colon cancer Social History (Updated 04/20/24 @ 14:27 by KIARA Jules) Housing: House Alcohol intake: current Alcohol intake frequency: a few times a month Patient Tobacco Use Status: Former Tobacco user Tobacco use type: Cigar e-Cigarette/Vaping Use: Never Used Second Hand Smoke Exposure: No service: No Current occupational status: employed Cognitive needs: No Hearing needs: No Vision needs: No Review of Systems Const All systems reviewed & are unremarkable except as noted in HPI and below Physical Exam Vital Signs: Last Vital Signs Temp 98.5 F 09/04/24 08:20 Pulse 82 09/04/24 08:20 BP 140/90 H 09/04/24 08:20 Pulse Ox 98 09/04/24 08:20 Oxygen Delivery Method Room Air 09/04/24 08:20 Const General: cooperative, healthy appearing, comfortable and no acute distress Orientation/consciousness: patient oriented x3 Limitations: no limitations HEENT Head: Yes normal to inspection Ears: hearing grossly normal bilaterally, external ears normal and TM's normal bilaterally General nose exam: Normal external nose present, Normal nares present and No nasal discharge present Face and sinus: Yes normal facial exam and Yes sinuses nontender Mouth: Normal oral and palatal mucosa present and moist mucous membranes Throat: Yes tonsils normal, Yes uvula midline and Yes posterior oropharynx abnormal (Erythema) Eyes General: appearance normal, both eyes and all related structures Neck Neck: Yes normal visual inspection Resp Effort & Inspection: normal respiratory effort, able to speak in complete sentences, no respiratory distress, not tachypneic, no tripod positioning and no use of accessory muscles Skin General skin exam: no rashes or lesions noted Neuro General: patient oriented x3 Extrem General: Yes normal to inspection and Yes no clubbing, cyanosis or edema Assessment & Plan Assessment & Plan (1) Sinusitis: Code(s): J32.9 - Chronic sinusitis, unspecified Qualifiers: Sinusitis location: maxillary Chronicity: acute Recurrence: non- recurrent Qualified Code(s): J01.00 - Acute maxillary sinusitis, unspecified Plan: Recommended continuing to use the Neti pot with distilled water as well as Flonase. I will send Augmentin to his pharmacy as it has been several weeks and it is not improving, likely bacterial infection. Plan see above Medications: New amoxicillin-pot clavulanate 875-125 mg 1 tab PO Q12H 10 tabs 0RF Coding Level of Care Code Est Pt Level 3 (98512) Diagnoses Acute non-recurrent maxillary sinusitis J01.00 Sinusitis location: maxillary Chronicity: acute Recurrence: non-recurrent
== END 2024-09-04 08:45 | disposition home or self-care (01) ==
PROVIDERS: PCP Internal Medicine; Visit Provider Physician Assistant
DX: J01.00 Acute maxillary sinusitis, unspecified (principal)

== ENCOUNTER → 2024-09-04 08:16 | Outpatient (BNVA) | payer OTHER, SELFPAY | PROVIDERS: PCP Internal Medicine; Visit Provider Physician Assistant ==

== ENCOUNTER 2025-04-12 10:55 | Outpatient (AMB) | payer OTHER, SELFPAY ==
--- NOTE | 2025-04-12 11:10 | MHC.PC.OV ---
Vital Signs 04/12/25 11:11 Height 6 ft 3 in Weight 257 lb 8 oz BMI 32.2 BP 140/86 H Blood Pressure Location Lt brachial Position Sitting Pulse 75 Pulse Source Pulse Oximeter Temp 97.3 F Temp Source Temporal Artery Scan Pulse Oximetry (%) 97 Oxygen Delivery Method Room Air Intake Visit Reasons: afib w/ref to cardio - see comments Intake Note: Patient is here to follow up on Afib requesting for referral to Cardiology. Sterile Preparation Technician Required: No Board Certified Behavioral Analyst: Not Required per policy Accompanied by: Self / Same As Patient Allergies No Known Allergies Allergy (Verified 04/12/25 11:11) Tobacco use date assessed: 04/12/25 Dental Screening Dental Screen Date: 04/12/25 Did you have a dental visit in the last 12 months?: Yes Did you have a dental problem in the last 6 months where you did not have access to dental care?: No Was dental information given to patient?: Patient has dentist [facility] Medical History (Updated 09/04/24 @ 08:41 by Kaity Hurst PA-C) Diverticulosis Tubular adenoma of colon Sleep apnea Fatty liver Renal calculi BPH (benign prostatic hyperplasia) HTN (hypertension) Surgical History Hx of colonoscopy (~01/06/24) H/O umbilical hernia repair Family History Father Colon cancer Social History Housing: House Alcohol intake: current Alcohol intake frequency: a few times a month Patient Tobacco Use Status: Former Tobacco user Tobacco use type: Cigar e-Cigarette/Vaping Use: Never Used Second Hand Smoke Exposure: Yes service: No Current occupational status: employed Cognitive needs: No Hearing needs: No Vision needs: Yes (Reading glasses) Questionnaire PHQ-9 Over the last 2 weeks, how often have you been bothered by any of the following problems? 1. Little interest or pleasure in doing things: not at all 2. Feeling down, depressed, or hopeless: not at all 3. Trouble falling or staying asleep, or sleeping too much: not at all 4. Feeling tired or having little energy: not at all 5. Poor appetite or overeating: not at all 6. Feeling bad about yourself - or that you are a failure or have let yourself or your family down: not at all 7. Trouble concentrating on things, such as reading the newspaper or watching television: not at all 8. Moving or speaking so slowly that other people could have noticed. Or the opposite - being so fidgety or restless that you have been moving around a lot more than usual: not at all 9. Thoughts that you would be better off or of hurting yourself in some way: not at all Total score: 0 Depression Screening Interpretation: Negative Depression Screening Done: Yes Source: Developed by Drs. Wally Jo, Amy Marrero, Juan Jose Pond and colleagues, with an educational ce from [employer]. Thrive Questionnaire Date Thrive assessed: 04/12/25 I am a: Patient What is your living situation today?: I have a steady place to live Within the past 12 months, did the food you bought not last and you didn't have the money to get more?: Never true Within the past 12 months, did you worry whether your food would run out before you got money to buy more?: I choose not to answer this question Do you have trouble paying for medicines?: I choose not to answer this question Do you have trouble getting transportation to medical appointments?: No Do you have trouble paying your heating and electricity bill?: No Do you have trouble taking care of your child, family member or friend?: No Do you have trouble with day-to-day activities such as bathing, preparing meals, shopping, managing finances, etc.?: No Are you currently unemployed and looking for a job?: No Are you interested in more education?: No Please select the resources that you would like help with: None Currently or been in a relationship where the following occur: I choose not to answer THRIVE Score: 0 AUDIT C Alcohol Use Questionnaire (AUDIT-C) 1. How often do you have a drink containing alcohol?: Never Total Score: 0 MELL-7 AMB Questionnaire MELL-7 Date MELL - 7 assessed: 04/12/25 Feeling nervous, anxious, or on edge: 0 = Not at all Not being able to stop or control worryin = Not at all Worrying too much about different things: 0 = Not at all Trouble relaxin = Not at all Being so restless that it is hard to sit still: 0 = Not at all Becoming easily annoyed or irritable: 0 = Not at all Feeling afraid as if something awful might happen: 0 = Not at all Total MELL-7 score (0-4 normal; 5-9 mild; 10-14 moderate; 15-21 severe): 0 Source: Developed by Drs. Wally Jo, Amy Marrero, Juan Jose Pond and colleagues, with an educational ce from [employer]. Physical exam (Primary Care) Vital Signs: Last Vital Signs Temp 97.3 F 04/12/25 11:11 Pulse 75 04/12/25 11:11 BP 140/86 H 04/12/25 11:11 Pulse Ox 97 04/12/25 11:11 Oxygen Delivery Method Room Air 04/12/25 11:11 BMI result Body Mass Index 32.2 Tobacco/Smoking Status: Tobacco use Status Tobacco use date assessed 04/12/25 04/12/25 11:21 Patient Tobacco Use Status Former Tobacco user 04/12/25 11:21 Tobacco use type Cigar 04/12/25 11:21 e-Cigarette/Vaping Use Never Used 04/12/25 11:21 PHQ-9: PHQ-9 Score PHQ-9: Total score 0 04/12/25 11:21 Depression Screening Interpretation: Negative Thrive Assessment: Date of Thrive Assessment Date Thrive assessed 04/12/25 04/12/25 11:21 Currently or been in a relationship where the following occur: I choose not to answer Coding Level of Care Code Est Pt Level 4 (33278) Complex EM visit Add On G2211 Diagnoses Atrial fibrillation I48.91 Assessment & Plan Assessment & Plan (1) Atrial fibrillation: Code(s): I48.91 - Unspecified atrial fibrillation Plan: Pt was in the ER of [facility] in Aug 2024. ER note scanned in, Cardiology consult requested. On physical exam today, patient is in sinus rhythm. Currently on no meds. Plan History of Present Illness The patient is a 59-year-old male presenting with an irregular heartbeat. He reported experiencing symptoms attributed to Atrial Fibrillation, initially recognized upon waking one day when he identified an irregular pulse. Although he went to work, the irregularity persisted, prompting an emergency room visit. There, AFib was diagnosed though no pharmacological treatment was initiated, and follow-up with a evaporator supervisor was suggested. Approximately two months ago, the patient had a similar episode, yet has been asymptomatic since then. He was directed to maintain physical activity, specifically walking. A referral for a cardiology evaluation has been delayed, and he seeks to address this during the current consultation. Social History - Employment: Not explicitly mentioned - Exercise: Patient tries to walk daily as part of his exercise routine - Family Status: No explicit details provided - Substance Use: Not discussed - Nutritional Intake: Had coffee and a banana on the day of appointment Review of Systems - Cardiovascular: Reports previously irregular heartbeat, currently no symptoms - General: Denies current unusual sensations or discomfort Physical Exam General: Cooperative and healthy appearing Nutritional Appearance: Well nourished Orientation/consciousness: Patient oriented x3 Limitations: No limitations Head: Normal to inspection General: Appearance normal, both eyes and all related structures Neck: Normal visual inspection Chest: Normal palpation of entire chest wall Respiratory: Normal respiratory effort Neurology: Patient oriented x3 Results - Previous EKG in August: Reviewed during this visit Plan 1. Atrial Fibrillation - Arrange for cardiology consultation for comprehensive evaluation - Repeat previous laboratory work including thyroid function tests - Obtain an immediate EKG to monitor the current rhythm status Discussion Notes During the visit, I discussed the implications of Atrial Fibrillation with the patient, emphasizing the potential for blood clot development if not properly managed. I explained the necessity of a cardiology consultation to delineate the extent of the arrhythmia and the need for potential anticoagulation therapy. I reviewed the previous EKG results with the patient and advised the repeat of blood work, including thyroid function, to ensure all contributory factors are evaluated. Instructions for obtaining an EKG and the importance of consulting a evaporator supervisor were reiterated. Follow-up care was emphasized, and the patient was encouraged to report any recurrence of symptoms promptly. Patient Instructions - Obtain blood work and an EKG as soon as possible - Schedule and attend a cardiology appointment - Continue daily physical activity unless instructed otherwise by a healthcare provider - Monitor for any recurrence of symptoms, and seek medical attention if they recur Orders: Orders ECG 12 lead EKG Today I48.91 - Unspecified atrial fibrillation Complete Blood Count no Diff Today I48.91 - Unspecified atrial fibrillation Basic Metabolic Panel Today I48.91 - Unspecified atrial fibrillation Lipid Panel Today I48.91 - Unspecified atrial fibrillation Liver Panel Today I48.91 - Unspecified atrial fibrillation Thyroid Stimulating Hormone Today I48.91 - Unspecified atrial fibrillation UA and rflx microscopic Today I48.91 - Unspecified atrial fibrillation
[2025-04-12 11:11] VITALS: BP 140/86; PULSE 75; TEMP 36.3; O2SAT 97; BMI 32.2
--- OUTSIDE RECORDS SUMMARY | 2025-04-12 11:37 | XMS_ITS | Patient Health Record ---
Author Organization [facility] Address [address] [place], [place] [id number] Care Team Providers Care Linoleum Tile Floor Layer Name Role Phone Hernando LOPEZ, Theron Soler Primary Care Provi rossy Unavailable RickyjatinGamaliel love Unavailable [phone] Reason For Referral No Information Plan Of Treatment No Information Insurance Providers Payer Name Payer Address Payer Phone Subscriber Number Group Number Insured Name Patient Relationship to Insured Coverage Start Date Coverage End Date Sleep Blue Cross Blue [facility] [address] [place] [address] [id number] 001 David Thomason Self - patient is the insured
== END 2025-04-12 14:34 | disposition home or self-care (01) ==
LOC: HO.HMCH 10:56
PROVIDERS: PCP Internal Medicine; Visit Provider Internal Medicine
DX: I48.91 Unspecified atrial fibrillation (principal)

== ENCOUNTER → 2025-04-12 10:55 | Outpatient (BNVA) | payer OTHER, SELFPAY | PROVIDERS: PCP Internal Medicine; Visit Provider Internal Medicine | DX: Z13.89 Encounter for screening for other disorder (principal) ==

== ENCOUNTER 2025-04-17 08:06 | Outpatient (REF) | payer OTHER, SELFPAY ==
--- OUTSIDE RECORDS SUMMARY | 2025-04-17 08:09 | XMS_ITS | Patient Health Record ---
Author Organization [facility] Address [address] [place], [place] [id number] Care Team Providers Care Solar Water Heater Installer Name Role Phone Hernando LOPEZ, Theron Soler Primary Care Provi rossy Unavailable RickyjatinGamaliel love Unavailable [phone] Reason For Referral No Information Plan Of Treatment No Information Insurance Providers Payer Name Payer Address Payer Phone Subscriber Number Group Number Insured Name Patient Relationship to Insured Coverage Start Date Coverage End Date Sleep Blue Cross Blue [facility] [address] [place] [address] [id number] 001 David Thomason Self - patient is the insured
--- NOTE | 2025-04-17 08:25 | ECG_ITS ---
Test Reason : unspec afib Blood Pressure : */* mmHG Vent. Rate : 76 BPM Atrial Rate : 76 BPM P-R Int : 196 ms QRS Dur : 86 ms QT Int : 382 ms P-R-T Axes : -15 -24 -1 degrees QTcB Int : 429 ms Normal sinus rhythm Possible Inferior infarct , age undetermined Abnormal ECG No previous ECGs available Referred By: Leland Marshall Electronically Signed By: ALISON ESPINOZA MD
[2025-04-17 09:12] LABS: Hematocrit 48.8 % (42.0-52.0); Hemoglobin 17.3 g/dl (14.0-18.0); Mean Corpuscular HGB Conc 35.5 g/dl (31.0-36.0); Mean Corpuscular Hemoglobin 31.6 pg (27.0-33.0); Mean Corpuscular Volume 89.1 fL (80.0-98.0); Mean Platelet Volume 8.4 fL (9.4-12.4); Platelet Count 209 X10*3/uL (160-400); Red Blood Count 5.48 X10*6/uL (4.60-5.80); Red Cell Distribution Width 12.7 % (11.0-16.0); White Blood Count 5.8 X10*3/uL (4.8-10.8)
[2025-04-17 09:21] LABS: Appearance Urine Clear; Color Urine Yellow; Glucose Urine UA Negative (Negative); Leukocyte Esterase Urine Negative (Negative); Nitrite Urine Negative (Negative); PH 5.5 (5.0-9.0); Urine Blood Negative (Negative); Urine Ketones Negative (Negative); Urine Protein Negative (Neg-Trace)
[2025-04-17 09:59] LABS: Alanine Aminotransferase 41 U/L (0-40); Albumin Level 4.9 g/dL (3.5-5.0); Alkaline Phosphatase 72 U/L (39-117); Anion Gap 15 (12-20); Aspartate Amino Transferase 30 U/L (5-37); Bilirubin Direct 0.2 mg/dL (0.0-0.5); Bilirubin Total 0.7 mg/dL (0.0-1.0); Blood Urea Nitrogen 22 mg/dL (9-16); Carbon Dioxide 19 mmol/L (22-29); Chloride 109 mmol/L (96-108); Cholesterol 196 mg/dL (<200); Estimated Glomerular Filt Rate > 60; Glucose Random 99 mg/dL (60-115); HDL Cholesterol 29 mg/dL (>40); LDL Cholesterol Calculated 143 mg/dL (<100); Potassium 4.1 mmol/L (3.3-5.1); Sodium 139 mmol/L (135-145); Thyroid Stimulating Hormone 1.32 uIU/mL (0.32-4.0); Total Protein 7.4 g/dL (6.5-8.0); Triglycerides 124 mg/dL (<150)
== END 2025-04-17 08:07 | disposition home or self-care (01) ==
LOC: HO.LAB 08:06
PROVIDERS: PCP Internal Medicine; Visit Provider Internal Medicine
DX: I48.91 Unspecified atrial fibrillation (principal); Z13.6 Encounter for screening for cardiovascular disorders
CPT/HCPCS: 36415; 80048; 80061; 80076; 81003; 84443; 85027; 93005

== ENCOUNTER → 2025-04-17 08:25 | Outpatient (BNV) | payer OTHER, SELFPAY | PROVIDERS: PCP Internal Medicine; Visit Provider Internal Medicine Cardiovascular Disease | DX: R94.31 Abnormal electrocardiogram [ECG] [EKG] (principal); I48.91 Unspecified atrial fibrillation | CPT/HCPCS: 93010 ==

== ENCOUNTER 2025-07-26 08:17 | Outpatient (AMB) | payer OTHER, SELFPAY ==
[2025-07-26 08:26] VITALS: BP 138/68; PULSE 73; BMI 31.4
--- NOTE | 2025-07-26 08:26 | MHC.OFFVIS ---
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 The patient experienced irregular heartbeats last year, prompting an EKG at [facility], which confirmed atrial fibrillation. This condition has recurred approximately four times within the past year, with episodes lasting two to three days. The patient has not received any medication for atrial fibrillation and has not consulted any other healthcare provider for this condition until now. The patient has a history of sleep apnea, previously managed with a CPAP mask when he weighed 307 pounds. After losing 65 pounds, the patient discontinued the CPAP mask approximately three years ago. The patient has hypertension, which is currently the only known cardiovascular risk factor. No other complaints like angina or anything else from the cardiac standpoint. [facility] Medical History (Updated 07/26/25 @ 08:51 by Michael Osborn MD) Morbid obesity SHAKEEL (obstructive sleep apnea) Diverticulosis Tubular adenoma of colon Sleep apnea Fatty liver Renal calculi BPH (benign prostatic hyperplasia) HTN (hypertension) Surgical History Hx of colonoscopy (~01/06/24) H/O umbilical hernia repair Family History (Updated 07/26/25 @ 08:28 by Tanya Alvarado) Father Colon cancer Mother No problems noted. Social History Housing: House Alcohol intake: current Alcohol intake frequency: a few times a month Patient Tobacco Use Status: Former Tobacco user Tobacco use type: Cigar e-Cigarette/Vaping Use: Never Used Second Hand Smoke Exposure: Yes service: No Current occupational status: employed Cognitive needs: No Hearing needs: No Vision needs: Yes (Reading glasses) Review of Systems Const Denies weakness ENT Denies dizziness Card Denies chest pain, Denies chest pain with activity, Denies syncope, Denies rapid heart rate, Denies pedal edema, Denies edema, Denies leg edema, Denies lightheadedness, Reports palpitations, Denies dyspnea, Denies dyspnea on exertion and Denies orthopnea Resp Denies cough, Denies dyspnea and Denies dyspnea on exertion GI Denies hematochezia and Denies change in stool character Musc Denies abnormal gait, Denies muscle cramps, Denies muscle weakness, Denies numbness, Denies radiating pain into limb and Denies tingling Neuro Denies abnormal gait, Denies dizziness, Denies syncope, Denies numbness, Denies tingling and Denies weakness Endo Reports palpitations Physical Exam Vital Signs: Last Vital Signs Pulse 73 07/26/25 08:26 BP 138/68 07/26/25 08:26 BMI result Body Mass Index 31.4 Const General: comfortable and no acute distress Orientation/consciousness: patient oriented x3 HEENT Other: Unremarkable Head: Yes normal to inspection Neck Neck: Yes normal visual inspection Chest Chest palpation & inspection: normal inspection of the chest Resp Auscultation: clear to auscultation bilaterally Cardio Palpation: normal PMI Heart sounds: S1 normal heart sound present, S2 normal heart sound present, no gallops, no murmurs and no rubs GI Palpation (GI): Soft to palpation Back/Spine/Pelvis Other: unremarkable Skin General skin exam: no rashes or lesions noted Neuro General: patient oriented x3 Extrem General: Yes normal to inspection Psych Mental Status: mental status grossly normal Assessment & Plan Assessment & Plan (1) PAF (paroxysmal atrial fibrillation): Code(s): I48.0 - Paroxysmal atrial fibrillation Category: Medical Plan: The plan includes ordering a Holter monitor to assess the frequency and duration of atrial fibrillation episodes. An echocardiogram is also planned to evaluate cardiac structure and function. The patient will be started on metoprolol to reduce the frequency of atrial fibrillation episodes. Due to low thromboembolic risk, hold off on anticoagulation for now. (2) SHAKEEL (obstructive sleep apnea): Code(s): G47.33 - Obstructive sleep apnea (adult) (pediatric) Category: Medical Plan: Repeat sleep study. (3) Hypertension: Code(s): I10 - Essential (primary) hypertension Category: Medical Plan: On amlodipine. Addition of beta-blockers should help. (4) Morbid obesity: Code(s): E66.01 - Morbid (severe) obesity due to excess calories Category: Medical Plan: Discussed importance of weight loss. Discussed relationship with atrial fibrillation. Plan Discussion Notes I discussed with the patient the importance of monitoring atrial fibrillation through a Holter monitor and the potential need for medication to manage the condition. We also talked about the role of sleep apnea in exacerbating atrial fibrillation and the need for a repeat sleep study. Patient was informed and verbally consented to the use of an ambient scribe for clinic note documentation during this visit. Orders: Orders CA echo transthoracic complete Today I48.0 - Paroxysmal atrial fibrillation ECG 30 day event monitor Today I48.0 - Paroxysmal atrial fibrillation RT home sleep study Today G47.33 - Obstructive sleep apnea (adult) (pediatric), I48.0 - Paroxysmal atrial fibrillation Medications: New metoprolol succinate ER (Toprol XL) 50 mg PO DAILY 90 tabs 1RF I48.0 - Paroxysmal atrial fibrillation Patient Instructions: - Schedule and complete the Holter monitor test as instructed. - Follow up with the echocardiogram appointment. - Take metoprolol as prescribed to manage atrial fibrillation. - Participate in a repeat sleep study to evaluate sleep apnea. Coding Level of Care Code New Pt Level 4 (47852) Complex EM visit Add On G2211 Diagnoses PAF (paroxysmal atrial fibrillation) I48.0 SHAKEEL (obstructive sleep apnea) G47.33 Hypertension I10 Morbid obesity E66.01
--- OUTSIDE RECORDS SUMMARY | 2025-07-26 08:36 | XMS_ITS | Patient Health Record ---
Author Organization [facility] Address [address] [place], [place] [id number] Care Team Providers Care Global Compensation Manager Name Role Phone Hernando LOPEZ, Theron Soler Primary Care Provi rossy Unavailable RickyjatinGamaliel love Unavailable [phone] Reason For Referral No Information Plan Of Treatment No Information Insurance Providers Payer Name Payer Address Payer Phone Subscriber Number Group Number Insured Name Patient Relationship to Insured Coverage Start Date Coverage End Date Sleep Blue Cross Blue [facility] [address] [place] [address] [phone] [id number] 001 David Thomason Self - patient is the insured
== END 2025-07-26 08:49 | disposition home or self-care (01) ==
LOC: HO.HCS 08:17
PROVIDERS: PCP Internal Medicine; Visit Provider Internal Medicine
DX: I48.0 Paroxysmal atrial fibrillation (principal); G47.33 Obstructive sleep apnea (adult) (pediatric); I10 Essential (primary) hypertension; E66.01 Morbid (severe) obesity due to excess calories
CPT/HCPCS: 99204

== ENCOUNTER → 2025-08-20 13:12 | Outpatient (BNV) | payer OTHER, SELFPAY | PROVIDERS: PCP Internal Medicine; Visit Provider Internal Medicine | DX: I48.0 Paroxysmal atrial fibrillation (principal); I71.21 Aneurysm of the ascending aorta, without rupture | CPT/HCPCS: 93306 ==

== ENCOUNTER → 2025-08-20 13:17 | Outpatient (REF) | payer OTHER, SELFPAY ==
--- NOTE | 2025-08-20 13:12 | CA_ITS ---
Transthoracic Echocardiogram Patient (Last, First, Middle): David Thomason Allen Gender: M Date of : 1965 Age: 59 Procedure Date: 08/20/2025 Procedure Type: Transthoracic Echocardiogram Location: OP Height: 190. cm Weight: 113.4 kg BSA: 2.41 m2 Heart Rate: 94 bpm BP: 120 / 80 mmHg Hard Tile Setter: NINFA Referring MD: Michael Osborn MD Symptoms: I48.0 - Paroxysmal atrial fibrillation Study Quality: Adequate ECG Rhythm: Atrial Fibrillation Conclusions: - The left ventricular systolic function is normal. The calculated ejection fraction is 56% by biplane method. - No obvious valvular pathology seen on this study. - There is mild dilatation of the sinuses of Valsalva measuring 4.20 cm, mild dilatation of the ascending aorta measuring 4.50 cm, and no dilatation of the aortic arch. Findings Left Ventricle Normal left ventricular cavity size. There is mildly increased left ventricular wall thickness. The left ventricular systolic function is normal. The calculated ejection fraction is 56% by biplane method. There is no evidence of regional wall motion abnormalities. Diastolic function is indeterminate on the basis of available data. Right Ventricle Normal right ventricular cavity size and systolic function. Atria Both atria are normal in size. Aortic Valve There is a normal trileaflet aortic valve. There is mild calcification of the aortic valve. There is no aortic valve stenosis. There is no aortic valve regurgitation. Mitral Valve The mitral valve appears normal. There is no mitral valve regurgitation. There is no mitral valve stenosis. Pulmonic Valve The pulmonic valve is likely normal. Tricuspid Valve There is trace tricuspid valve regurgitation. There is no evidence of pulmonary hypertension. Great Vessels There is mild dilatation of the sinuses of Valsalva measuring 4.20 cm, mild dilatation of the ascending aorta measuring 4.50 cm, and no dilatation of the aortic arch. Venous The inferior vena cava is normal in size and collapses greater than 50% with inspiration. Pericardium/Pleural There is no evidence of pericardial effusion. Prior Study Comparison No prior study available for comparison. Recommendations, Care & Conclusions No obvious valvular pathology seen on this study. Measurements 2D Linear Measurements IVSd: 1.17 0.6-0.9/0.6-1.0 cm LVIDd: 4.53 3.9-5.3/4.2-5.9 cm LVIDd Index: 1.88 2.4-3.2/2.2-3.1 cm/m2 LVIDs: 2.56 2.0-3.6 cm LVPWd: 1.12 0.7-1.1 cm LA Diam: 4.00 2.7-3.8/3.0-4.0 cm LAIDs Index: 1.66 1.5-2.3 cm/m2 LV Mass: 233.23 67-162/88-224 g LV Mass Index: 96.77 43-95/49-115 g/m2 LVOT Diam: 2.50 3.0+(-)1.3 cm 2D Systolic Function EF 4C: 57.50 >55% EF 2C: 53.20 >55% EF BiP: 56.20 >55% Mitral Valve MV Pk E: 0.72 MV Decel Time: 251.00 E'Lateral: 14.40 E'Medial: 11.20 E/E' Med: 6.40 E/E' Lat: 5.00 PHT: 74.00 MVA PHT: 2.97 Decel Crawford: 2.88 Aortic Valve AoV Pk Hernán: 1.26 AoV Mn Hernán: 0.93 AoV VTI: 0.21 AoV Pk Grad: 6.00 Aov Mn Grad: 4.00 FARIDA Cont.VTI: 4.13 LVOT LVOT Pk Hernán: 1.08 LVOT Mn Hernán: 0.78 LVOT VTI: 0.18 LVOT Pk Grad: 5.00 LVOT Mn Grad: 3.00 LVOT Diam: 2.50 LVOT Area: 4.91 Diastolic Function MV Pk E: 0.72 E'Medial: 11.20 E/E' Med: 6.40 E' Laterial: 14.40 E/E' Lat: 5.00 Right Ventricle TAPSE (mm): 21.10 TVS' Hernán: 13.60 Tricuspid Valve RA Press: 3.00 Great Vessels Aorta Sinus of Valsalva: 4.20 2.0-3.5 cm Ao Asc: 4.50 2.1-3.4 cm Ao Arch: 3.00 Pulmonary Valve PV Pk Hernán: 0.85 Peak PV Grad: 3.00 Updated in Other Vendor System with Status of Final Michael Osborn MD electronically signed on 08/21/2025 3:29:23 PM with status of Final
--- OUTSIDE RECORDS SUMMARY | 2025-08-20 14:44 | XMS_ITS | Patient Health Record ---
Author Organization [facility] Address [address] [place], [place] [id number] Care Team Providers Care Medical Educator Name Role Phone Hernando LOPEZ, Theron Soler Primary Care Provi rossy Unavailable RickyjatinGamaliel love Unavailable [phone] Reason For Referral No Information Plan Of Treatment No Information Insurance Providers Payer Name Payer Address Payer Phone Subscriber Number Group Number Insured Name Patient Relationship to Insured Coverage Start Date Coverage End Date Sleep Blue Cross Blue [facility] [address] [place] [address] [id number] David Thomason Self - patient is the insured
== END ==
LOC: HO.CARD 13:17
PROVIDERS: PCP Internal Medicine; Visit Provider Internal Medicine
DX: I48.0 Paroxysmal atrial fibrillation (principal)
CPT/HCPCS: 93270; 93306

== ENCOUNTER → 2025-10-01 08:28 | Outpatient (REF) | payer OTHER, SELFPAY ==
--- OUTSIDE RECORDS SUMMARY | 2025-10-01 08:46 | XMS_ITS ---
Author Name [facility] Organization Unknown Care Team Organization Name Specialty Phone Email Start Date End [facility] 08/27/2025 [facility] 08/27/2025
--- OUTSIDE RECORDS SUMMARY | 2025-10-01 08:46 | XMS_ITS | Patient Health Record ---
Author Organization [facility] Address [address] [place], [place] [id number] Care Team Providers Care Sewage Reticulation Drafting Officer Name Role Phone Hernando LOPEZ, Theron Soler Primary Care Provi rossy Unavailable RickyjatinGamaliel love Unavailable [phone] Reason For Referral No Information Plan Of Treatment No Information Insurance Providers Payer Name Payer Address Payer Phone Subscriber Number Group Number Insured Name Patient Relationship to Insured Coverage Start Date Coverage End Date Sleep Blue Cross Blue [facility] [address] [place] [address] [id number] David Thomason Self - patient is the insured
== END ==
LOC: HO.SL 08:28
PROVIDERS: PCP Internal Medicine; Visit Provider Internal Medicine
DX: G47.33 Obstructive sleep apnea (adult) (pediatric) (principal); I48.0 Paroxysmal atrial fibrillation
CPT/HCPCS: 95806

== ENCOUNTER → 2025-10-01 08:37 | Outpatient (BNV) | payer OTHER, SELFPAY | PROVIDERS: PCP Internal Medicine; Visit Provider Psychiatry & Neurology Neurology | DX: G47.33 Obstructive sleep apnea (adult) (pediatric) (principal) | CPT/HCPCS: 95806 ==

== ENCOUNTER 2025-10-04 08:09 | Outpatient (AMB) | payer OTHER, SELFPAY ==
[2025-10-04 08:20] VITALS: BP 124/68; PULSE 50; BMI 32.0
--- NOTE | 2025-10-04 08:20 | MHC.OFFVIS ---
Vital Signs 10/04/25 08:20 Height 6 ft 3 in Weight 255 lb 11.779 oz BMI 32.0 BP 124/68 Blood Pressure Location Lt brachial Position Sitting Pulse 50 Pulse Source Pulse Oximeter Intake Visit Reasons: follow up/ echo/event mon/sleep study Allergies No Known Allergies Allergy (Verified 04/12/25 11:11) Medication List - Last Reconciled 10/04/25 by Michael Osborn MD amlodipine 5 mg PO DAILY apixaban (Eliquis) 5 mg PO BID atorvastatin 20 mg PO BEDTIME cholecalciferol (vitamin D3) 25 mcg PO DAILY fluticasone propionate 50 mcg/actuation 1 spray intranasal DAILY PRN metoprolol succinate ER 100 mg PO DAILY HPI Comments Details: David returns for follow-up regarding atrial fibrillation. Initially diagnosed during a visit to [facility] and then has happened a few times after that. He does not really feel any major symptoms like chest pains or shortness of breath or palpitations. Morbid obesity. History of obstructive sleep apnea and previously on CPAP. Then he lost a lot of weight and has discontinued CPAP. Repeat sleep study is pending. On blood pressure medications. Otherwise, he states he feels good. He has completed an echocardiogram and Holter monitor. [facility] Medical History (Updated 10/04/25 @ 09:12 by Michael Osborn MD) Morbid obesity SHAKEEL (obstructive sleep apnea) Diverticulosis Tubular adenoma of colon Sleep apnea Fatty liver Renal calculi BPH (benign prostatic hyperplasia) HTN (hypertension) Surgical History Hx of colonoscopy (~01/06/24) H/O umbilical hernia repair Family History (Updated 07/26/25 @ 08:28 by Tanya Alvarado) Father Colon cancer Mother No problems noted. Social History Housing: House Alcohol intake: current Alcohol intake frequency: a few times a month Patient Tobacco Use Status: Former Tobacco user Tobacco use type: Cigar e-Cigarette/Vaping Use: Never Used Second Hand Smoke Exposure: Yes service: No Current occupational status: employed Cognitive needs: No Hearing needs: No Vision needs: Yes (Reading glasses) Review of Systems Const Denies weakness ENT Denies dizziness Card Denies chest pain, Denies chest pain with activity, Denies syncope, Denies rapid heart rate, Denies pedal edema, Denies edema, Denies leg edema, Denies lightheadedness, Denies palpitations, Denies dyspnea, Denies dyspnea on exertion and Denies orthopnea Resp Denies cough, Denies dyspnea and Denies dyspnea on exertion GI Denies hematochezia and Denies change in stool character Musc Denies abnormal gait, Denies muscle cramps, Denies muscle weakness, Denies numbness, Denies radiating pain into limb and Denies tingling Neuro Denies abnormal gait, Denies dizziness, Denies syncope, Denies numbness, Denies tingling and Denies weakness Endo Denies palpitations Physical Exam Vital Signs: Last Vital Signs Pulse 50 10/04/25 08:20 BP 124/68 10/04/25 08:20 BMI result Body Mass Index 32.0 Const General: comfortable and no acute distress Orientation/consciousness: patient oriented x3 HEENT Other: Unremarkable Head: Yes normal to inspection Neck Neck: Yes normal visual inspection Chest Chest palpation & inspection: normal inspection of the chest Resp Auscultation: clear to auscultation bilaterally Cardio Palpation: normal PMI Heart sounds: S1 normal heart sound present, S2 normal heart sound present, no gallops, no murmurs and no rubs GI Palpation (GI): Soft to palpation Back/Spine/Pelvis Other: unremarkable Skin General skin exam: no rashes or lesions noted Neuro General: patient oriented x3 Extrem General: Yes normal to inspection Psych Mental Status: mental status grossly normal Assessment & Plan Assessment & Plan (1) PAF (paroxysmal atrial fibrillation): Code(s): I48.0 - Paroxysmal atrial fibrillation Category: Medical Plan: In the recent Holter monitor, underlying rhythm is atrial fibrillation. Average ventricular rate is 82/Min. Mostly within range. In the echocardiogram, LVEF 56%. No significant valvular findings. We discussed about management of atrial fibrillation. Suspect it is now persistent rather than paroxysmal. He needs cardioversion. We will schedule after appropriate anticoagulation. He is on Eliquis but he is apparently taking it only once a day. He needs to do that twice a day for 3-4 weeks before we can performed cardioversion. Continue beta-blockers otherwise. Post cardioversion, if he maintains sinus rhythm then probably flecainide followed by ablation. (2) SHAKEEL (obstructive sleep apnea): Code(s): G47.33 - Obstructive sleep apnea (adult) (pediatric) Category: Medical Plan: Repeat sleep study. If appropriate, then CPAP. (3) Hypertension: Code(s): I10 - Essential (primary) hypertension Category: Medical Plan: On amlodipine. (4) Morbid obesity: Code(s): E66.01 - Morbid (severe) obesity due to excess calories Category: Medical Plan: Discussed importance of weight loss. Discussed relationship with atrial fibrillation. (5) Ascending aorta enlargement: Code(s): I77.89 - Other specified disorders of arteries and arterioles Category: Medical Plan: In the echocardiogram, ascending aortic size 4.5 cm. Mildly enlarged comparing his overall body surface area. We will need to follow up. Orders: Orders Cardioversion Today I48.0 - Paroxysmal atrial fibrillation Coding Level of Care Code Est Pt Level 4 (83439) Complex EM visit Add On G2211 Diagnoses PAF (paroxysmal atrial fibrillation) I48.0 SHAKEEL (obstructive sleep apnea) G47.33 Hypertension I10 Morbid obesity E66.01 Ascending aorta enlargement I77.89
--- OUTSIDE RECORDS SUMMARY | 2025-10-04 08:23 | XMS_ITS | Patient Health Record ---
Author Organization [facility] Address [address] [place], [place] [id number] Care Team Providers Care Loom Stop Checker Name Role Phone Hernando LOPEZ, Theron Soler Primary Care Provi rossy Unavailable RickyjatinGamaliel love Unavailable [phone] Reason For Referral No Information Plan Of Treatment No Information Insurance Providers Payer Name Payer Address Payer Phone Subscriber Number Group Number Insured Name Patient Relationship to Insured Coverage Start Date Coverage End Date Sleep Blue Cross Blue [facility] [address] [place] [phone] [id number] David Thomason Self - patient is the insured
== END 2025-10-04 08:39 | disposition home or self-care (01) ==
LOC: HO.HCS 08:09
PROVIDERS: PCP Internal Medicine; Visit Provider Internal Medicine
DX: I48.0 Paroxysmal atrial fibrillation (principal); G47.33 Obstructive sleep apnea (adult) (pediatric); I10 Essential (primary) hypertension; E66.01 Morbid (severe) obesity due to excess calories; I77.89 Other specified disorders of arteries and arterioles
CPT/HCPCS: 99214